=== PATIENT | male | born 1965 | race Caucasian/White ===

== ENCOUNTER 2016-07-20 21:10 | Emergency (ER) | payer BC ==
[2016-07-20 21:28] LABS: BASOPHIL# 0.1 X 10^3uL (0.0-0.1); BASOPHILS 1.3 % (0.0-2.0); EOSINOPHILS 1.2 % (0.0-6.0); EOSINOPHILS# 0.1 X 10^3uL (0.0-0.4); HEMATOCRIT 47.4 % (42.0-54.0); HEMOGLOBIN 16.1 g/dL (14.0-18.0); LYMPHOCYTES 20.2 % (20.0-40.0); LYMPHOCYTES# 1.8 X 10^3uL (0.8-3.8); MEAN CELL VOLUME 92.1 fL (80.0-100.0); MEAN CORPUSCULAR HEMOGLOBIN 31.3 pg (29.0-35.0); MEAN PLATELET VOLUME 7.5 fL (7.4-10.4); MONOCYTES 9.7 % (2.0-10.0); MONOCYTES# 0.9 X 10^3uL (0.2-1.0); NEUTROPHILS# 6.2 X 10^3uL (2.6-6.7); PLATELET COUNT 232 X 10^3uL (130-440); RED BLOOD COUNT 5.15 X 10^6uL (4.20-6.10); RED CELL DISTRIBUTION WIDTH 12.5 % (11.5-14.5); WHITE BLOOD COUNT 9.1 X 10^3uL (3.9-10.7)
[2016-07-20 21:33] LABS: BLOOD UREA NITROGEN 19 mg/dL (9-20); CHLORIDE 103 mmol/L (98-107); CREATININE 1.2 mg/dL (0.7-1.3); EST GLOMERULAR FILTRATION RATE > 60 mL/min; GLUCOSE 128 mg/dL (70-100); POTASSIUM 4.1 mmol/L (3.5-5.1); SODIUM 140 mmol/L (137-145)
[2016-07-20 21:39] LABS: NEUTROPHILS 67.6 % (54.0-75.0)
[2016-07-20] MEDS ORDERED: KETOROLAC TROMETHAMINE 30 MG/ML VIAL ONE (21:40)
[2016-07-20 21:45] LABS: TROPONIN I < 0.012 ng/mL (0.00-0.034)
--- NOTE | 2016-07-20 21:58 | ER NURSING DOCUMENTATION ---
Nurse's Notes [facility] Name:Alejandro Peterson Age:50 yrs Sex:Male :1965 Arrival Date:07/20/2016 Time:21:01 BedTrauma-C Private MD: Diagnosis:Pleuritic Chest Pain Presentation: 07/20 21:07 Notified ED Physician of Aldair Corbett notified. lb 21:07 Acuity: SIMA 3 lb 21:18 Presenting complaint: Patient states: sharp left sided chest pain for 2 days, worse lb today. becomes worse if he takes a deep breath. denies n/v. feels short of breath. up to altitude yesterday from [place]. Transition of care: patient was not received from another setting of care. AIR CAT ACTIVATION no. Asprin Given Given in ED 324 mg po. 21:18 Method Of Arrival: Walk In lb Triage Assessment: 21:20 General: Appears in no apparent distress, Behavior is cooperative, pleasant. Pain: lb Complains of pain in left breast Pain does not radiate. Pain currently is 6 out of 10 on a pain scale. Quality of pain is described as sharp, Pain began 2-3 days ago Is intermittent. Cardiovascular: Rhythm is sinus rhythm. Respiratory: Airway is patent Trachea midline Respiratory effort is even, unlabored, Respiratory pattern is regular, Breath sounds are clear bilaterally. Historical: - Allergies: No known Allergies; - Home Meds: 1. None - PMHx: None; - PSHx: Knee surgery; - Tetanus: < 10 years. - Ebola Screening: : Patient denies exposure to infectious person. Patient denies travel to an Ebola-affected area in the 21 days before illness onset. . - Immunization history: Flu Vaccine None. - Social history: Smoking status: Patient states was never smoker of tobacco. Patient/guardian denies using alcohol. - Code Status:: Full code. Screenin:22 Infectious Disease Risk None. Abuse screen: Denies threats or abuse. Denies injuries lb from another. Nutritional screening: No deficits noted. Assessment: 21:21 See Triage Assessment done by same RN. Pain: Complains of pain in left breast Pain does lb not radiate. Pain currently is 6 out of 10 on a pain scale. Quality of pain is described as sharp, Pain began 2-3 days ago Is intermittent. Vital Signs: 21:08 BP 152 / 93 LA Sitting (auto/reg); Pulse 99 MON; Resp 22 S; Temp 98.2(O); Pulse Ox 92% em3 on R/A; Weight 97.52 kg (R); Height 6 ft. 3 in. (190.50 cm) (R); Pain 3/10; 21:15 BP 167 / 85; Pulse 97; Resp 24; Pulse Ox 91% ; em3 21:48 BP 122 / 81; Pulse 103; Resp 16; Pulse Ox 95% on 2 lpm NC; lb 21:56 BP 122 / 81; Pulse 100; Resp 20; Pulse Ox 95% on R/A; Pain 2/10; lb 21:08 Body Mass Index 26.87 (97.52 kg, 190.50 cm) em3 ED Course: 21:01 Patient arrived in ED. em3 21:04 EKG done. (by ED staff). Reviewed by Ian Quinteros MD. em3 21:07 Annamaria Dolan is Primary Nurse. lb 21:10 Triage completed. lb 21:16 Inserted peripheral IV: 20 gauge in right antecubital area and blood collected. arc 21:17 Oxygen Oxygen administration via nasal cannula @ 2L/min. em3 21:17 Valuables Remains with patient Patient has correct armband on for positive em3 identification. Placed in gown. Bed in low position. Call light in reach. Side rails up X2. 21:22 quality assurance monitor final on. Pulse ox on. NIBP on. lb 21:23 Ian Quinteros MD is Attending Physician. jm 21:26 Port Xray Completed. meggan 21:26 CHEST; SINGLE VIEW [id number] In Process Unspecified. EDMS 21:58 EKG attached lb Administered Medications: 21:17 Drug: Aspirin Chewable Tablet 324 mg; Route: PO; lb 21:26 Follow up: Response: No adverse reaction lb 21:17 Drug: Nitroglycerin 0.4 mg; Route: Sublingual; lb 21:25 Follow up: Response: No change in condition lb 21:30 Drug: Toradol 30 mg; Route: IVP; Site: right antecubital; lb 21:56 Follow up: Response: Pain is decreased lb Outcome: 21:47 Discharge ordered by . jm 21:56 Discharged to home ambulatory. lb 21:56 Condition: good 21:56 Discharge Assessment: Patient awake, alert and oriented x 3. No cognitive and/or functional deficits noted. Patient verbalized understanding of disposition instructions. 21:56 Instructed on discharge instructions, follow up and referral plans. 21:56 IV D/Tr 21:57 Patient left the ED. lb Signatures: Dispatcher [employer] EDIan Baker MD MD jm Abbott, Rebecca Brown, William em3 Cailin Jones, Annamaria Clement
--- NOTE | 2016-07-20 21:58 | ER PHYSICIAN DOCUMENTATION ---
Physician Documentation [facility] Name:Alejandro Peterson Age:50 yrs Sex:Male :1965 Arrival Date:07/20/2016 Time:21:01 BedTrauma-C Private MD: Ian Lorenz Disposition: 07/20/16 21:47 Discharged to Home/Self Care. Impression: Pleuritic Chest Pain. - Condition is Good. - Discharge Instructions: CHEST PAIN Pleurisy - PLEURISY. - Medical Reconciliation form form. - Follow up: Private Physician; When: As needed; Reason: Continuance of care. - Problem is new. - Symptoms have improved. HPI: 07/20 21:42 This 50 yrs old Male presents to ER via Walk In with complaints of Chest Pain. 21:42 The patient or guardian reports chest pain that is located primarily in the left jm lateral anterior chest. Onset: 2 day(s) ago. The pain does not radiate. There has been no movement of pain. Associated signs and symptoms: Pertinent positives: shortness of breath. The chest pain is described as sharp, squeezing. Duration: The patient or guardian reports a single episode, that is still ongoing, but improving. Modifying factors: the symptoms are aggravated by cough, deep breath, movement, twisting torso. Severity of pain: in the emergency department the pain has improved. This patient does not have any risk factors related to chest pain. The patient has not experienced similar symptoms in the past. The patient has been recently seen by a physician: the patient's primary care provider, with different complaint(s), Pt just finished a round of abx and steroids for bronchitis. 2 days alter, this pain started to creep, but and then he drove up to [facility]. Pt's pain is worse w deep breath. Pt had to switch positions while sleeping to make the pain better last night. . Historical: - Allergies: No known Allergies; - Home Meds: 1. None - PMHx: None; - PSHx: Knee surgery; - Tetanus: < 10 years. - Ebola Screening: : Patient denies exposure to infectious person. Patient denies travel to an Ebola-affected area in the 21 days before illness onset. . - Immunization history: Flu Vaccine None. - Social history: Smoking status: Patient states was never smoker of tobacco. Patient/guardian denies using alcohol. - Code Status:: Full code. ROS: 21:44 Constitutional: Negative for fever. jm 21:44 ENT: Negative for sinus congestion, sinus pain, sore throat. 21:44 Cardiovascular: Positive for chest pain, with cough. 21:44 Respiratory: Positive for pleurisy, of the left lateral anterior chest, shortness of breath. 21:44 Abdomen/GI: Negative for abdominal pain, nausea, vomiting. 21:44 Back: Negative for injury or acute deformity, decreased range of motion. 21:44 MS/extremity: Negative for injury or acute deformity, swelling, tenderness. 21:44 Skin: Negative for rash, swelling. 21:44 Psych: Negative for anxiety, depression, drug dependence, alcohol dependence. 21:44 All other systems are negative. Exam: 21:45 Constitutional: The patient appears alert, awake, comfortable. 21:45 Eyes: Periorbital structures: appear normal, Extraocular movements: intact throughout. 21:45 ENT: Mouth: is normal, Voice: is normal. 21:45 Chest/axilla: Inspection: normal, Palpation: tenderness, that is mild, of the left lateral anterior chest and left lateral posterior chest, that partially reproduces the patient's complaints. 21:45 Cardiovascular: Rate: normal, Rhythm: 21:45 Respiratory: Respirations: normal, Breath sounds: are normal. 21:45 Abdomen/GI: Bowel sounds: normal, Palpation: abdomen is soft and non-tender. 21:45 Musculoskeletal/extremity: DVT Exam: No signs of deep vein thrombosis. Calves: are non-tender. 21:45 Skin: Appearance: Color: pink, no rash present. 21:45 Neuro: Mentation: is normal, Memory: is normal. 21:45 Psych: Behavior/mood is pleasant, cooperative, Affect is calm. Vital Signs: 21:08 BP 152 / 93 LA Sitting (auto/reg); Pulse 99 MON; Resp 22 S; Temp 98.2(O); Pulse Ox 92% em3 on R/A; Weight 97.52 kg (R); Height 6 ft. 3 in. (190.50 cm) (R); Pain 3/10; 21:15 BP 167 / 85; Pulse 97; Resp 24; Pulse Ox 91% ; em3 21:48 BP 122 / 81; Pulse 103; Resp 16; Pulse Ox 95% on 2 lpm NC; lb 21:56 BP 122 / 81; Pulse 100; Resp 20; Pulse Ox 95% on R/A; Pain 2/10; lb 21:08 Body Mass Index 26.87 (97.52 kg, 190.50 cm) em3 MDM: 21:23 Patient medically screened. sylvie 21:46 Differential diagnosis: acute myocardial infarction, chest wall pain, pleurisy. Patient sylvie took aspirin. Data reviewed: vital signs, nurses notes, lab test result(s), EKG, radiologic studies, and as a result, I will discharge patient. Test interpretation: by ED physician or midlevel provider: plain radiologic studies, ECG. Counseling: I had a detailed discussion with the patient and/or guardian regarding: the historical points, exam findings, and any diagnostic results supporting the discharge/admit diagnosis, lab results, radiology results, the need for outpatient follow up, with the patient's primary care provider. ECG:. Medication response: The patient's symptoms have improved, 21:58 EKG attached lb 07/21 00:27 ED course: Given on going CP for a whle, 1 trop is enough. I really feel this is all jm pleuritic CP. Trop/EKG/CXR normal.. 07/20 21:34 Order name: BASIC METABOLIC PANEL; Complete Time: 21:46 EDMS 07/20 21:34 Order name: MAGNESIUM; Complete Time: 21:46 EDMS 07/20 21:40 Order name: CBC AUTO DIF, MDIF/RMOR IF IND; Complete Time: 21:46 EDMS 07/20 21:45 Order name: TROPONIN I; Complete Time: 21:46 EDMS 07/20 21:26 Order name: CHEST; SINGLE VIEW [id number] EDMS 07/22 10:08 Order name: CHEST; SINGLE VIEW [id number] EDMS 07/20 21:11 Order name: 12-lead EKG; Complete Time: 21:18 lb 07/20 21:11 Order name: Iv Saline Lock; Complete Time: 21:18 lb 07/20 21:11 Order name: Place Patient On Monitor; Complete Time: 21:18 lb 07/20 21:11 Order name: Pulse Ox Continuous; Complete Time: 21:18 lb EC/21 21:46 Rhythm is regular. QRS [place] is Normal. OR interval is normal. QRS interval is normal. jm QT interval is normal. No Q waves. T waves are Normal. No ST changes noted. Dispensed Medications: 21:17 Drug: Aspirin Chewable Tablet 324 mg; Route: PO; lb 21:26 Follow up: Response: No adverse reaction lb 21:17 Drug: Nitroglycerin 0.4 mg; Route: Sublingual; lb 21:25 Follow up: Response: No change in condition lb 21:30 Drug: Toradol 30 mg; Route: IVP; Site: right antecubital; lb 21:56 Follow up: Response: Pain is decreased lb Signatures: Ian Quinteros MD MD jm Bollock, Lynda lb
--- NOTE | 2016-07-22 09:48 | RADIOLOGY REPORT ---
A limited single portable view of the chest, without prior films for comparison , demonstrates the heart, vessels and lungs to be unremarkable. No infiltrate, fluid or pneumothorax is seen. IMPRESSION: Unremarkable limited single portable view of the chest. MTDD
== END 2016-07-20 21:58 | disposition home or self-care (01) ==
LOC: ER 21:10
DX: R07.81 Pleurodynia (principal)
CPT/HCPCS: 71010; 80048; 83735; 84484; 85025; 93005; 96374; 99285; J1885